=== PATIENT | female | born 1990 | race Caucasian/White ===

== ENCOUNTER 2017-01-23 19:53 | Emergency (ER) | payer BC ==
[~2017-01-23] VITALS: Ht 157.5 cm; Wt 61.7 kg
[~2017-01-23 19:53] MED LIST: ACET-789 PO; ACHD5005 PO; CEPH-38 PO; DCS100C PO; FERR-65 PO; FRS325T PO; IBP600T1 PO; NFR150C PO; OMEP20CA6 PO; PREN1TAB39 PO
--- NOTE | 2017-01-23 20:09 | ED GI ---
General Chief Complaint: Abdominal/GI Problems Stated Complaint: VOMITING Nursing Triage Note: PT STATES HAS BEEN VOMITING AND HAS LOW BACK PAIN PT IS UNSURE OF DATES Sepsis Screen: No Definite Risk Source of Information: Patient Exam Limitations: No Limitations History of Present Illness Time Seen By Provider: 20:07 Initial Comments ER with nausea and vomiting since this afternoon. She reports some low back pain which she reports as a contraction type pain. She is and has had a test at home that was positive and states that she had some interaction with Dr. Alanis's office 2 weeks ago but did not have any ultrasound performed. She is unsure of her last menstrual period or how far along she may be. She denies any abdominal pain. . She denies any vaginal discharge or bleeding. Timing/Duration: 4-6 Hours Severity/Quality: Moderate Location: Generalized Abdomen Radiation: No Radiation Activities at Onset: None Associated Symptoms: Nausea/Vomiting Allergies and Home Medications Allergies Coded Allergies: No Known Drug Allergies (Unverified , 05/29/12) Home Medications Vits W-Ca,Fe,Fa(<1MG) 1 Each Tablet, 1 EACH PO, (Reported) Review of Systems Constitutional: see HPI EENTM: No Symptoms Reported Respiratory: No Symptoms Reported Cardiovascular: No Symptoms Reported Gastrointestinal: See HPI, Abdominal Pain Genitourinary: No Symptoms Reported Musculoskeletal: no symptoms reported Skin: no symptoms reported Psychiatric/Neurological: No Symptoms Reported Endocrine: No Symptoms Reported Hematologic/Lymphatic: No Symptoms Reported Past Yymhwoe-Wdokpg-Skecxi Hx Patient Social History Alcohol Use: Denies Use Recreational Drug Use: No Smoking Status: Never a Smoker Recent Foreign Travel: No Contact w/Someone Who Travel: No Recent Infectious Disease Expo: No Recent Hopitalizations: No (in may 2012 for kidney stone) Immunizations Up To Date Tetanus Booster (TDap): More than 5yrs PED Vaccines UTD: Yes Date of Influenza Vaccine: Dec 08, 2011 Surgeries HX Surgeries: Yes (wisdom teeth extraction) Respiratory Hx Respiratory Disorders: Yes (exercise induced) Respiratory Disorders: Asthma Cardiovascular Hx Cardiac Disorders: No Neurological Hx Neurological Disorders: No Reproductive System : Yes Hx Reproductive Disorders: No Sexually Transmitted Disease: No HIV/AIDS: No Female Reproductive Disorders: Denies Genitourinary Hx Genitourinary Disorders: Yes Genitourinary Disorders: Kidney Stones Gastrointestinal Hx Gastrointestinal Disorders: No Musculoskeletal Hx Musculoskeletal Disorders: No Endocrine Hx Endocrine Disorders: No HEENT HX ENT Disorders: No Cancer Hx Cancer: No Psychosocial Hx Psychiatric Problems: No Integumentary HX Skin/Integumentary Disorder: No Blood Transfusions Hx Blood Disorders: Yes Family Medical History Family Medial History: Asthma 19 FATHER G8 BROTHER Severe allergy 19 FATHER G8 BROTHER Thyroid disease 19 MOTHER No Family History of: AIDS Abdominal aortic aneurysm Devyn's disease Alcoholism Alzheimer's disease Aphasia Arthritis Cancer of mouth Cardiovascular disease Cataracts Colon cancer Completed stroke Congenital disease Congenital heart disease Coronary thrombosis Cystic fibrosis Deafness or hearing loss Dementia Diabetes mellitus Drug abuse Dysphasia Fibrocystic disease of breast Gastroenteritis Glaucoma Headache disorder Hypercholesterolemia Hypertension Infertility Kidney disease Myocardial infarction Neoplasm Not obtainable due to adoption Osteoporosis Parkinson's disease Prostate cancer Psychosocial problem Respiratory disorder Seizure disorder Tuberculosis Visual disorder Physical Exam Vital Signs VS - Last 72 Hours, by Label 01/23/17 19:59 Temp 98.7 Pulse 122 Resp 18 B/P (MAP) 135/84 Pulse Ox 100 Capillary Refill : Less Than 3 Seconds General Appearance: WD/WN, mild distress (vomiting) HEENT: PERRL/EOMI Neck: non-tender, full range of motion Respiratory: chest non-tender, lungs clear, normal breath sounds Cardiovascular: no murmur, tachycardia Gastrointestinal: normal bowel sounds, non tender, soft Extremities: normal range of motion, non-tender Neurologic/Psychiatric: alert, normal mood/affect, oriented x 3 Skin: normal color, warm/dry Progress/Results/Core Measures Results/Orders Lab Results Laboratory Tests Test 01/23/17 20:05 01/23/17 20:08 Range/Units White Blood Count 8.9 4.3-11.0 10^3/uL Red Blood Count 4.31 L 4.35-5.85 10^6/uL Hemoglobin 11.5 11.5-16.0 G/DL Hematocrit 34 L 35-52 % Mean Corpuscular Volume 79 L 80-99 FL Mean Corpuscular Hemoglobin 27 25-34 PG Mean Corpuscular Hemoglobin Concent 34 32-36 G/DL Red Cell Distribution Width 14.0 10.0-14.5 % Platelet Count 186 130-400 10^3/uL Mean Platelet Volume 11.8 H 7.4-10.4 FL Neutrophils (%) (Auto) 81 H 42-75 % Lymphocytes (%) (Auto) 14 12-44 % Monocytes (%) (Auto) 4 0-12 % Eosinophils (%) (Auto) 1 0-10 % Basophils (%) (Auto) 0 0-10 % Neutrophils # (Auto) 7.3 1.8-7.8 X 10^3 Lymphocytes # (Auto) 1.3 1.0-4.0 X 10^3 Monocytes # (Auto) 0.4 0.0-1.0 X 10^3 Eosinophils # (Auto) 0.1 0.0-0.3 10^3/uL Basophils # (Auto) 0.0 0.0-0.1 10^3/uL Sodium Level 139 135-145 MMOL/L Potassium Level 3.9 3.6-5.0 MMOL/L Chloride Level 107 98-107 MMOL/L Carbon Dioxide Level 21 21-32 MMOL/L Anion Gap 11 5-14 MMOL/L Blood Urea Nitrogen 8 7-18 MG/DL Creatinine 0.70 0.60-1.30 MG/DL Estimat Glomerular Filtration Rate > 60 BUN/Creatinine Ratio 11 Glucose Level 79 70-105 MG/DL Calcium Level 8.7 8.5-10.1 MG/DL Total Bilirubin 0.5 0.1-1.0 MG/DL Aspartate Amino Transf (AST/SGOT) 18 5-34 U/L Alanine Aminotransferase (ALT/SGPT) 10 0-55 U/L Alkaline Phosphatase 44 40-136 U/L Total Protein 6.8 6.4-8.2 G/DL Albumin 3.9 3.2-4.5 G/DL Human Chorionic Gonadotropin, Quant [id number] H <5 MIU/ML Urine Color YELLOW Urine Clarity CLEAR Urine pH 6 5-9 Urine Specific [place] 1.015 L 1.016-1.022 Urine Protein NEGATIVE NEGATIVE Urine Glucose (UA) NEGATIVE NEGATIVE Urine Ketones NEGATIVE NEGATIVE Urine Nitrite NEGATIVE NEGATIVE Urine Bilirubin NEGATIVE NEGATIVE Urine Urobilinogen NORMAL NORMAL MG/DL Urine Leukocyte Esterase 2+ H NEGATIVE Urine RBC (Auto) NEGATIVE NEGATIVE Urine RBC NONE /HPF Urine WBC 2-5 /HPF Urine Squamous Epithelial Cells 5-10 /HPF Urine Crystals NONE /LPF Urine Bacteria NONE /HPF Urine Casts NONE /LPF Urine Mucus NEGATIVE /LPF Urine Culture Indicated NO My Orders Orders - AIDAN HURD [employer] CLEANER REPAIR PERSON Cbc With Automated Diff (01/23/17 20:05) Hcg,Quantitative (01/23/17 20:05) Ua Culture If Indicated (01/23/17 20:05) Us Ob Single Fetus<14 [id number] (01/23/17 20:05) Comprehensive Metabolic Panel (01/23/17 20:05) Saline Lock/Iv-Start (01/23/17 20:05) Ns Iv 1000 Ml (Sodium Chloride 0.9%) (01/23/17 20:15) Ondansetron Injection (Zofran Injectio (01/23/17 20:15) Medications Given in ED Current Medications Medications Dose Ordered Sig/Mari Route Start Time Stop Time Status Last Admin Dose Admin Ondansetron HCl 8 mg ONCE ONCE IVP 01/23/17 20:15 01/23/17 20:16 DC 01/23/17 20:13 8 MG Vital Signs/I&O Vital Sign - Last 12Hours 01/23/17 19:59 Temp 98.7 Pulse 122 Resp 18 B/P (MAP) 135/84 Pulse Ox 100 Blood Pressure Mean: 101 Departure Impression Impression: Primary Impression: Nausea and vomiting during Disposition: 01 HOME, SELF-CARE Condition: Stable Departure-Patient Inst. Decision time for Depature: 21:12 Referrals: ALE MANSFIELD DO (PCP/Family) Primary Care Physician Patient Instructions: Nausea and Vomiting of (DC) Add. Discharge Instructions: 1. Follow-up with Dr. Alanis 2. Return to the emergency room for any concerns such as fevers, abdominal pain , vaginal bleeding, intolerable nausea and vomiting 3. All discharge instructions reviewed with patient and/or family. Voiced understanding. Copy Copies To 1: BIRD ALANIS DO Copies To 2: ALE MANSFIELD PETER J APRN Jan 23, 2017 20:09
[2017-01-23 20:14] LABS: BASOPHILS % (AUTO) 0 % (0-10); EOSINOPHILS # (AUTO) 0.1 10^3/uL (0.0-0.3); EOSINOPHILS % (AUTO) 1 % (0-10); LYMPHOCYTES # (AUTO) 1.3 X 10^3 (1.0-4.0); LYMPHOCYTES % (AUTO) 14 % (12-44); MEAN CORPUSCULAR HEMOGLOBIN 27 PG (25-34); MEAN CORPUSCULAR HGB CONC 34 G/DL (32-36); MEAN CORPUSCULAR VOLUME 79 FL (80-99); MEAN PLATELET VOLUME 11.8 FL (7.4-10.4); MONOCYTES # (AUTO) 0.4 X 10^3 (0.0-1.0); MONOCYTES % (AUTO) 4 % (0-12); NEUTROPHILS # (AUTO) 7.3 X 10^3 (1.8-7.8); NEUTROPHILS % (AUTO) 81 % (42-75); PLATELET COUNT 186 10^3/uL (130-400); RED BLOOD COUNT 4.31 10^6/uL (4.35-5.85); WHITE BLOOD COUNT 8.9 10^3/uL (4.3-11.0)
[2017-01-23 20:15] LABS: BILIRUBIN,URINE NEGATIVE (NEGATIVE); KETONES,URINE NEGATIVE (NEGATIVE); LEUKOCYTE ESTERASE ,URINE 2+ (NEGATIVE); NITRITE,URINE NEGATIVE (NEGATIVE); PH,URINE 6 (5-9); PROTEIN,URINE NEGATIVE (NEGATIVE); UROBILINOGEN,URINE NORMAL (NORMAL)
[2017-01-23] MEDS ORDERED: ONDANSETRON 4 MG/2 ML (SDV) Z0FRAN IVP ONE (20:15)
[2017-01-23] MEDS ORDERED: NS IV 1000 ML 1,000 ML IV SCH (20:15)
[2017-01-23 20:33] LABS: ALANINE AMINOTRANSFERASE 10 U/L (0-55); ALBUMIN 3.9 G/DL (3.2-4.5); ANION GAP 11 MMOL/L (5-14); ASPARTATE AMINO TRANSFERASE 18 U/L (5-34); BILIRUBIN,TOTAL 0.5 MG/DL (0.1-1.0); BLOOD UREA NITROGEN 8 MG/DL (7-18); BUN/CREATININE RATIO 11; CALCIUM 8.7 MG/DL (8.5-10.1); CARBON DIOXIDE 21 MMOL/L (21-32); CHLORIDE 107 MMOL/L (98-107); GFR ESTIMATED > 60; GLUCOSE 79 MG/DL (70-105); POTASSIUM 3.9 MMOL/L (3.6-5.0); SODIUM 139 MMOL/L (135-145); TOTAL PROTEIN 6.8 G/DL (6.4-8.2)
[2017-01-23 21:22] VITALS: BP 128/80
--- NOTE | 2017-01-23 21:36 | Diagnostic Imaging Report ---
INDICATION: Uncertain gestational age. EXAM: OB sonogram. FINDINGS: A single living intrauterine in cephalic presentation. Amniotic fluid volume is normal. The placenta is anterior and appears to be a complete previa. heart rate was 147 beats per minute. IMPRESSION: Limited OB sonogram shows anterior placenta with a complete placenta previa. measurements correspond to a gestational age of 18 weeks and 5 days. Dictated by: Dictated on workstation # [id number]
--- OUTSIDE RECORDS SUMMARY | 2017-02-25 15:23 | XMS REPORT ---
Author Author RUDY CHAPIN [facility] [employer] Address Unknown Phone Unavailable Care Team Providers Care Low Vision Therapist Name Role Phone RUDY CHAPIN CP Unavailable Allergies No Known Allergies Problems Problem Type Condition Code Onset Dates Condition Status Problem Anxiety disorder, unspecified F41.9 Active Assessment Major depressive disorder, recurrent, moderate F33.1 Active Problem Major depressive disorder, recurrent, moderate F33.1 Active Assessment Anxiety disorder, unspecified F41.9 Active Medications No Known Medications Procedures Procedure Coding System Code Date Psych diagnostic evaluation, established patient CPT-4 77386 Sep 06, 2015 Results No Known Results Summary Purpose eClinicalWorks Submission
--- OUTSIDE RECORDS SUMMARY | 2017-02-25 15:23 | XMS REPORT ---
Author RADHA Pressley [facility] [employer] Address Unknown Phone Unavailable Care Team Providers Care School Athletic Director Name Role Phone RADHA ALMODOVAR CP Unavailable Allergies No Known Allergies Problems Problem Type Condition Code Onset Dates Condition Status Problem Anxiety disorder, unspecified F41.9 Active Assessment Screening for tuberculosis Z11.1 Active Problem Major depressive disorder, recurrent, moderate F33.1 Active Medications No Known Medications Procedures Procedure Coding System Code Date TB INTRADERMAL TEST CPT-4 55838 Oct 27, 2015 Results No Known Results Summary Purpose eClinicalWorks Submission
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
--- OUTSIDE RECORDS SUMMARY | 2017-02-25 15:24 | XMS REPORT ---
Author Author RUDY CHAPIN Organization [employer] Address Unknown Phone Unavailable Care Team Providers Care Atlassian Administrator Name Role Phone RUDY CHAPIN CP Unavailable Allergies No Known Allergies Problems Problem Type Condition Code Onset Dates Condition Status Problem Anxiety disorder, unspecified F41.9 Active Assessment Major depressive disorder, recurrent, moderate F33.1 Active Problem Major depressive disorder, recurrent, moderate F33.1 Active Assessment Anxiety disorder, unspecified F41.9 Active Medications No Known Medications Procedures Procedure Coding System Code Date Psychotherapy, patient &/family, 45 minutes, established patient CPT-4 76871 Oct 08, 2015 Results No Known Results Summary Purpose eClinicalWorks Submission
== END 2017-01-23 21:20 | disposition home or self-care (01) ==
LOC: EDUNIT# 19:53 → ER 19:54
DX: O21.0 Mild hyperemesis gravidarum (principal); Z3A.18 18 weeks gestation of pregnancy
CPT/HCPCS: 36415; 76805; 80053; 81000; 84702; 85025; 96361; 96374

== ENCOUNTER → 2017-02-16 | Outpatient (CLI) | payer BC ==
--- NOTE | 2017-02-16 17:20 | Diagnostic Imaging Report ---
INDICATION: survey. FINDINGS: Single live intrauterine fetus. Fetus is vertex and active. Heart rate of 147 beats per minute. Amniotic fluid index is normal. Placenta is anterior and does extend into the lower uterine segment raising concern of at least partial previa. The anatomical survey appears normal. Cervical length is 6.5 cm. Biometric measurements are BPD 5.10 cm, head circumference 18.85 cm, abdominal circumference 17.0 cm, femur length 3.71 cm with estimated weight of 453 g. IMPRESSION: 1. There is a 22 weeks 1 day live intrauterine based on previous ultrasound of 01/23/2017. There has been normal growth in the interim. Today's measurements are average for 21 weeks 5 days gestation. age by LMP is 22 weeks 1 day. Estimated date of delivery by ultrasound is 06/24/2017 with estimated date of delivery by LMP of 06/21/2017. Dictated by: Dictated on workstation # [id number]
== END ==
LOC: RAD 13:26
PROVIDERS: ATTEND Obstetrics & Gynecology
DX: O26.842 Uterine size-date discrepancy, second trimester (principal); O44.42 Low lying placenta NOS or without hemorrhage, second trimester; R76.8 Other specified abnormal immunological findings in serum; Z3A.22 22 weeks gestation of pregnancy
CPT/HCPCS: 76805; 76817

== ENCOUNTER 2017-04-06 15:36 | Outpatient (CLI) | payer BC, MEDICAID ==
[~2017-04-06] VITALS: Ht 157.5 cm; Wt 66.3 kg
[2017-04-06 15:55] VITALS: BP 119/74
[2017-04-06] MEDS ORDERED: FERR325C PO (16:27)
[2017-04-06] MEDS ORDERED: ONDANSETRON 8 MG (ZOFRAN) ORAL DISSOLVE TAB PO ONE (16:30)
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
== END 2017-04-06 17:17 | disposition home or self-care (01) ==
LOC: LDRP 15:36 → WSo 15:36
PROVIDERS: ATTEND Obstetrics & Gynecology
DX: O9A.313 Physical abuse complicating pregnancy, third trimester (principal); Z3A.29 29 weeks gestation of pregnancy
CPT/HCPCS: 99213

== ENCOUNTER 2017-05-08 17:12 | Outpatient (CLI) | payer BC, MEDICAID ==
[~2017-05-08] VITALS: Ht 157.5 cm; Wt 66.3 kg
[~2017-05-08 17:12] MED LIST changes: +FERR325C PO
[2017-05-08 17:55] VITALS: BP 112/60
[2017-05-08 18:08] VITALS: BP 118/70
--- NOTE | 2017-05-09 11:33 | Physician Query-Final Dx ---
JIGNA LEO 05/09/17 1133: Clinic Account Progress/Dx Physician Query: Please give diagnosis Date of Service May 08, 2017 at 17:12 BIRD ALANIS DO 06/07/17 0645: Clinic Account Progress/Dx DIAGNOSIS: Diagnosis decreased movement, third trimester JIGNA LEO May 09, 2017 11:33 BIRD ALANIS DO Jun 07, 2017 06:45
== END 2017-05-08 18:40 | disposition home or self-care (01) ==
LOC: LDRP 17:12 → WSo 17:12
PROVIDERS: ATTEND Obstetrics & Gynecology
DX: O36.8130 Decreased fetal movements, third trimester, not applicable or unspecified (principal); Z3A.33 33 weeks gestation of pregnancy
CPT/HCPCS: 99213

== ENCOUNTER → 2017-05-22 | Outpatient (CLI) | payer BC, MEDICAID ==
--- NOTE | 2017-05-22 16:45 | Diagnostic Imaging Report ---
EXAMINATION: Biophysical profile. OB ultrasound. INDICATION: Decreased movement. TECHNIQUE: Multiple real-time grayscale images were obtained over the gravid uterus. COMPARISON: 02/16/2017. FINDINGS: heart rate is 132 beats per minute. The placenta is anterior. No placenta previa. Amniotic fluid index is 8.9 cm. Biophysical profile criteria is assessed with no breathing seen. Total biophysical profile score is 6/8. The growth parameters are: Biparietal diameter: 32 week and one day, at -2.7 standard deviations Head circumference: 34 week and one day at -2 standard deviation Abdominal circumference: 34 week and 2 days at -0.9 standard deviation Femur length: 33 week and 2 day at -1.9 standard deviation These average at: 33 weeks and 4 days this compares to gestational age of 35 weeks and 5 days based on DAVID of 06/21/2017. Estimated Weight: 2.3 kg . IMPRESSION: 1. Biophysical profile score is 6/8. 2. The growth measurements are listed above. The head measurements are below 2 standard deviations from the mean at this gestational age. Report given to nurse (January) \T\ faxed to [phone] at 4:38 p.m. 05/22/2017/cb Dictated by: Dictated on workstation # [id number]
== END ==
LOC: RAD 13:56
PROVIDERS: ATTEND Obstetrics & Gynecology
DX: O26.843 Uterine size-date discrepancy, third trimester (principal); Z3A.33 33 weeks gestation of pregnancy
CPT/HCPCS: 76805; 76819

== ENCOUNTER → 2017-05-31 | Outpatient (CLI) | payer BC, MEDICAID ==
--- NOTE | 2017-05-31 16:57 | Diagnostic Imaging Report ---
OB ultrasound with biophysical profile INDICATION: Decreased movement TECHNIQUE: Multiple real-time grayscale images were obtained over the gravid uterus. COMPARISON: 06/10/17 FINDINGS: The heart rate is 130 beats per minute. The placenta is anterior. No placenta previa. The LUISITO is 9.4 CM. Biophysical profile total score is 8 out of 8. Biometrical measurements are as follows: Biparietal 8.18 cm, age 33 weeks 0 days, at the 2.7 standard deviation below the mean. Head circumference 31.06 cm, age 34 weeks 6 days, 2.3 standard deviation below the mean. Abdominal circumference 33.82 cm, age 37 weeks 6 days at 0.9 standard deviation above the mean. Femur length 6.59 cm, age 34 weeks 0 days, at 2.1 standard deviation below the mean. Sonographic estimate age: 35 weeks 0 days. Sonographic estimated date of delivery: 07/05/2017. Estimated Weight: 2802 gm (+/- 409 gm). LMP percentile: 28%. heart rate: 130 beats per minute. number: 1 of 1. IMPRESSION: Biophysical profile score is 8 out of 8. Dictated by: Dictated on workstation # [id number]
== END ==
LOC: RAD 10:14
PROVIDERS: ATTEND Nurse Practitioner
DX: O36.8190 Decreased fetal movements, unspecified trimester, not applicable or unspecified (principal); Z3A.00 Weeks of gestation of pregnancy not specified
CPT/HCPCS: 76805; 76819

== ENCOUNTER 2017-06-26 00:41 | Inpatient (IN) | payer BC, MEDICAID ==
[~2017-06-26] VITALS: Ht 167.6 cm; Wt 74.5 kg
[2017-06-26] VITALS (29 sets, daily range): BP systolic 105–155; BP diastolic 55–84
[2017-06-26] MEDS ORDERED: D5 LR IV SOLUTION 1,000 ML IV ONE (01:08)
[2017-06-26] MEDS ORDERED: D5 LR IV SOLUTION 1,000 ML IV SCH (01:19)
[2017-06-26] MEDS ORDERED: MINERAL OIL CONCENTRATE 99.9% 15 ML UDC TOP PRN (01:30)
[2017-06-26 01:48] LABS: BASOPHILS % (AUTO) 0 % (0-10); EOSINOPHILS # (AUTO) 0.2 10^3/uL (0.0-0.3); EOSINOPHILS % (AUTO) 2 % (0-10); LYMPHOCYTES # (AUTO) 2.7 X 10^3 (1.0-4.0); LYMPHOCYTES % (AUTO) 32 % (12-44); MEAN CORPUSCULAR HEMOGLOBIN 25 PG (25-34); MEAN CORPUSCULAR HGB CONC 32 G/DL (32-36); MEAN CORPUSCULAR VOLUME 78 FL (80-99); MONOCYTES # (AUTO) 0.8 X 10^3 (0.0-1.0); MONOCYTES % (AUTO) 9 % (0-12); NEUTROPHILS # (AUTO) 4.7 X 10^3 (1.8-7.8); NEUTROPHILS % (AUTO) 56 % (42-75); PLATELET COUNT 134 10^3/uL (130-400); RED BLOOD COUNT 4.11 10^6/uL (4.35-5.85); WHITE BLOOD COUNT 8.3 10^3/uL (4.3-11.0)
[2017-06-26 02:04] LABS: BILIRUBIN,URINE NEGATIVE (NEGATIVE); KETONES,URINE NEGATIVE (NEGATIVE); LEUKOCYTE ESTERASE ,URINE NEGATIVE (NEGATIVE); NITRITE,URINE NEGATIVE (NEGATIVE); PH,URINE 7 (5-9); PROTEIN,URINE NEGATIVE (NEGATIVE); UROBILINOGEN,URINE NORMAL (NORMAL)
[2017-06-26] MEDS ORDERED: SUFENTA 0.6MCG/ML BUPIVA 0.125 100 ML ONE (02:16)
[2017-06-26] MEDS ORDERED: LACTATED RINGERS 1,000 ML IV ONE (02:16)
[2017-06-26] MEDS ORDERED: BUPIVACAINE 0.25% 30 ML (SENSORCAINE) VIAL ONE (02:49)
[2017-06-26] MEDS ORDERED: fentaNYL INJECTION 100 MCG/2 ML AMP ONE (02:49)
[2017-06-26] MEDS ORDERED: LIDOCAINE PF 2% 5 ML (XYLOCAINE) VIAL ONE (02:49)
[2017-06-26] MEDS ORDERED: BUPIVACAINE 0.5% 30 ML (SENSORCAINE) VIAL ONE (02:49)
[2017-06-26] MEDS ORDERED: LACTATED RINGERS 1,000 ML IV SCH (03:18)
[2017-06-26] MEDS ORDERED: ONDANSETRON 4 MG/2 ML (SDV) Z0FRAN IV PRN (03:30)
[2017-06-26] MEDS ORDERED: EPIDURAL (SUFENTA 0.6MCG/ML BUPIVA 0.125%) 100 ML BAG EPI PRN (03:30)
[2017-06-26] MEDS ORDERED: NALOXONE 0.4 MG/ML 1 ML (NARCAN) VIAL IV PRN (03:30)
[2017-06-26] MEDS ORDERED: diphenhydrAMINE 50 MG/ML INJ (BENADRYL) IV PRN (03:30)
[2017-06-26] MEDS ORDERED: LIDOCAINE/EPI 2% 1:200,00 (XYLOCAINE) 10 ML VIAL ONE (04:53)
[2017-06-26] MEDS ORDERED: OXYTOCIN/NORMAL SALINE 500 ML IV ONE (04:56)
[2017-06-26] MEDS: OXYTOCIN/NORMAL SALINE 500 ML IV SCH ×2 (05:18→05:51)
[2017-06-26] MEDS ORDERED: APAP 300 MG/CODEINE 30 MG (TYLENOL #3) TAB PO PRN (05:30)
[2017-06-26] MEDS ORDERED: TETANUS,DIPTH,PERTUSS P/F (BOOSTRIX) 0.5 ML VIAL IM ONE (05:30)
[2017-06-26] MEDS ORDERED: BENZOCAINE/MENTHOL (DERMOPLAST) 56 ML CAN TP PRN (05:30)
[2017-06-26] MEDS ORDERED: DIBUCAINE (NUPERCAINAL) 1% OINT 30 GM TOP PRN (05:30)
[2017-06-26] MEDS ORDERED: WITCH HAZEL(TUCKS) 40 EA JAR TOP PRN (05:30)
[2017-06-26] MEDS ORDERED: MEASLES,MUMPS,RUBELLA 1 EA INJ SQ ONE (05:30)
--- NOTE | 2017-06-26 05:34 | OB Labor & Delivery Record ---
L&D History Date of Service Date of Service: Jun 26, 2017 History Expected Date of Delivery: Jun 22, 2017 Gestational Age in Weeks: 40 Complications Events: Routine care Operative Indications (Cesarea: N/A-Vaginal Delivery Intrapartal Events: None L&D Stage1 Stage One Onset of Labor - Date: Jun 26, 2017 Monitors and Tracing Monitor Mode: External Heart Rate: 130 Monitor Decelerations: None Station: -1 Short Term Variability: Present Presentation: Vertex Vital Signs VS - Last 72 Hours, by Label 06/26/17 06/26/17 06/26/17 06/26/17 01:00 02:05 02:35 02:50 Temp 97.7 Pulse 88 71 80 Resp 18 B/P (MAP) 129/84 Pulse Ox 99 98 O2 Delivery Room Air Room Air 06/26/17 06/26/17 06/26/17 06/26/17 03:00 03:05 03:10 03:15 Pulse 81 69 63 67 B/P (MAP) 155/71 138/74 132/76 136/65 Pulse Ox 98 99 99 99 O2 Delivery Room Air Room Air Room Air Room Air 06/26/17 06/26/17 06/26/17 06/26/17 03:20 03:25 03:30 03:35 Pulse 71 69 68 60 B/P (MAP) 140/71 130/73 128/75 125/73 Pulse Ox 100 100 100 100 O2 Delivery Room Air Room Air Room Air Room Air 06/26/17 03:35 Temp 97.1 Rupture of Membranes Spontaneous Ruture of Membrane: Yes Amniotic Membrane Rupture Time: 0139 Amniotic Fluid Membrane Tests: Nitrazine Positive Vaginal Bleeding Description: Normal Show Induction/Anesthesia Epidural Cath Placement - Time: 04:00 L&D Stage2 Stage Two Stage II Date: Jun 26, 2017 Monitors and Tracing Monitor Mode: External Heart Rate: 130 Monitor Accelerations: Uniform Monitor Decelerations: Variable Inserter Promotional Item Variability: Average (6-10) Short Term Variability: Present Position: Right Occiput Anterior Presentation: Vertex Cord Descript/Complications Cord Vessel Description: 3 Vessels Delivery Type Delivery Method: Spontaneous Vaginal Anterior Shoulder: Right Episiotomy/Perineal Laceration Laceraction(s)/Extensions: No Condition of Delivery 1 minute Comment: 9 5 minute Comment: 10 Condition of Infant Condition of Infant: Living Exam: No Observed Abnormalities live male weight 7lbs 5 oz Resuscitation Resuscitation: N/A - Spontaneous Resp L&D Stage3 Stage Three Stage III Date: Jun 26, 2017 Pictocin Pitocin Administration Comment: 30 mu wide open Placenta Delivery Placenta Delivery: Spontaneous Delivery Summary Summary blood loss >1000ml: No Vaginal blood loss >500ml: No Condition of Delivery Examined: Cervix Examined, Uterus Explored Post Hemorrhage: No Condition of Mother stable Condition of (s) stable [place] ENAMORADO DO Jun 26, 2017 05:34
[2017-06-26] MEDS: IBUPROFEN 600 MG (MOTRIN) TAB PO SCH ×3 (05:51→18:06)
[2017-06-26] MEDS ORDERED: CATHETER FLUSH 10 ML SYR IV SCH ×2 (06:00)
--- NOTE | 2017-06-26 08:43 | History & Physical-OB ---
OB - Chief Complaint & HPI Date/Time Date of Admission: Date of Admission: Jun 26, 2017 at 1:05 am Time Seen by Provider: 04:00 Chief Complaint/History OB-Reason for Admission/Chief: Onset of Labor Hx : 3 Hx Para: 2 Expected Date of Delivery: Jun 22, 2017 Gestational Age in Weeks: 40 Gestational Age in Days: 4 Admission Nurse Assessment Rev: Yes History of Labs O pos Antibody +, Anti K RI RPR NR HBsAg NR HIV NR GC neg GBS neg Allergies and Home Medications Allergies Coded Allergies: No Known Drug Allergies (Unverified , 05/29/12) Home Medications Ferrous Sulfate 325 Mg Capsule.er, 325 MG PO DAILY, (Reported) Vits W-Ca,Fe,Fa(<1MG) 1 Each Tablet, 1 EACH PO, (Reported) OB - History Hx of Present Care: Yes Ultrasounds: Normal mid trimester US Obstetrical Complications: None Medical Complications: None Obstetrical History Hx Termination: No Hx Multiple Gestation: No Hx Stillbirth: No Hx Complication: No Hx Induced Hypertens: No Hx Maternal Gestational Diabet: No Delivery History Hx Dystocia: No Hx Large For Gestational Age I: No Hx Small for Gestational Age I: No Hx Section: No Hx Vaginal Delivery Post C-Sec: No Hx Blood Disorders: Yes Patient Past Medical History GERD, Hx of Nephrolithiasis Social History/Family History HIV/AIDS: No Recent Infectious Disease Expo: No Sexually Transmitted Disease: No Alcohol Use: Denies Use Recreational Drug Use: No Immunizations Hepatitis A: No Hepatitis B: No Tetanus Booster (TDap): More than 5yrs Date of Influenza Vaccine: Dec 08, 2011 OB - Admission Exam Physical Exam Date Seen by Provider: Jun 26, 2017 Time Seen by Provider: 04:00 Vitals: Vital Signs 06/26/17 06/26/17 06/26/17 06/26/17 06/26/17 01:00 05:00 05:15 06:17 07:17 Temp 97.9 Pulse 55 Resp 18 B/P (MAP) 109/58 Pulse Ox 100 O2 Delivery Room Air HEENT: NCAT Lungs: Clear Abdomen: Gravid Extremities: Normal Reflexes: Normal Cervical Dilatation: 5cm Effacement: 75% Station: -1 Membranes: Intact Heart Rate: 130's Accelerations: Accelerations Present Decelerations: No Decelerations Short Term Variability: Present Fpc Variability: Average (6-25) Intensity: Firm Labs Laboratory Tests Test 06/26/17 01:30 Range/Units White Blood Count 8.3 4.3-11.0 10^3/uL Red Blood Count 4.11 L 4.35-5.85 10^6/uL Hemoglobin 10.3 L 11.5-16.0 G/DL Hematocrit 32 L 35-52 % Mean Corpuscular Volume 78 L 80-99 FL Mean Corpuscular Hemoglobin 25 25-34 PG Mean Corpuscular Hemoglobin Concent 32 32-36 G/DL Red Cell Distribution Width 15.0 H 10.0-14.5 % Platelet Count 134 130-400 10^3/uL Mean Platelet Volume 7.4-10.4 FL Neutrophils (%) (Auto) 56 42-75 % Lymphocytes (%) (Auto) 32 12-44 % Monocytes (%) (Auto) 9 0-12 % Eosinophils (%) (Auto) 2 0-10 % Basophils (%) (Auto) 0 0-10 % Neutrophils # (Auto) 4.7 1.8-7.8 X 10^3 Lymphocytes # (Auto) 2.7 1.0-4.0 X 10^3 Monocytes # (Auto) 0.8 0.0-1.0 X 10^3 Eosinophils # (Auto) 0.2 0.0-0.3 10^3/uL Basophils # (Auto) 0.0 0.0-0.1 10^3/uL Urine Color YELLOW Urine Clarity CLEAR Urine pH 7 5-9 Urine Specific [place] 1.015 L 1.016-1.022 Urine Protein NEGATIVE NEGATIVE Urine Glucose (UA) NEGATIVE NEGATIVE Urine Ketones NEGATIVE NEGATIVE Urine Nitrite NEGATIVE NEGATIVE Urine Bilirubin NEGATIVE NEGATIVE Urine Urobilinogen NORMAL NORMAL MG/DL Urine Leukocyte Esterase NEGATIVE NEGATIVE Urine RBC (Auto) NEGATIVE NEGATIVE Urine RBC NONE /HPF Urine WBC NONE /HPF Urine Squamous Epithelial Cells 2-5 /HPF Urine Crystals NONE /LPF Urine Amorphous Sediment FEW VIVIEN PHOSPHATE H /LPF Urine Bacteria TRACE /HPF Urine Casts NONE /LPF Urine Mucus SMALL H /LPF Urine Culture Indicated NO OB - Assessment/Plan/Diagnosis Assessment Assessment: active labor Plan Plan: Expectant Management Discharge Diagnosis Diagnosis: 27 yo @ 40.4 Active labor GBS neg AZ ENAMORADO DO Jun 26, 2017 8:43 am
[2017-06-26] MEDS ORDERED: FERROUS SULF 325 MG (IRON) TAB PO SCH (09:00)
[2017-06-26] MEDS: PRENATAL VITAMIN 1 EA TAB PO SCH (11:05)
--- NOTE | 2017-06-26 14:07 | Anesthesia-Regional Post-Op ---
Regional Patient Condition Mental Status: Alert, Oriented x3 Circulation: Same as Pre-Op Headache: Absent Sensation: Full Recovery Motor Block: Absent Post Op Complications Complications None Follow Up Care/Instructions Patient Instructions None needed. Anesthesia/Patient Condition Patient is doing well, no complaints, stable vital signs, no apparent adverse anesthesia problems. No complications reported per nursing. RIMMA DAVID CRNA Jun 26, 2017 14:07
[2017-06-26] MEDS: DOCUSATE SODIUM 100 MG (COLACE) CAP PO SCH (21:22)
[2017-06-27 00:15] VITALS: BP 100/59
[2017-06-27] MEDS: IBUPROFEN 600 MG (MOTRIN) TAB PO SCH ×3 (00:15→11:44)
[2017-06-27 04:15] VITALS: BP 104/57
[2017-06-27 06:43] LABS: BASOPHILS % (AUTO) 0 % (0-10); EOSINOPHILS # (AUTO) 0.2 10^3/uL (0.0-0.3); EOSINOPHILS % (AUTO) 2 % (0-10); LYMPHOCYTES # (AUTO) 3.4 X 10^3 (1.0-4.0); LYMPHOCYTES % (AUTO) 38 % (12-44); MEAN CORPUSCULAR HEMOGLOBIN 25 PG (25-34); MEAN CORPUSCULAR HGB CONC 31 G/DL (32-36); MEAN CORPUSCULAR VOLUME 79 FL (80-99); MONOCYTES # (AUTO) 0.6 X 10^3 (0.0-1.0); MONOCYTES % (AUTO) 7 % (0-12); NEUTROPHILS # (AUTO) 4.7 X 10^3 (1.8-7.8); NEUTROPHILS % (AUTO) 53 % (42-75); PLATELET COUNT 124 10^3/uL (130-400); RED BLOOD COUNT 3.82 10^6/uL (4.35-5.85); RED CELL DISTRIBUTION WIDTH 15.2 % (10.0-14.5); WHITE BLOOD COUNT 8.8 10^3/uL (4.3-11.0)
[2017-06-27 07:40] VITALS: BP 115/66
--- NOTE | 2017-06-27 09:21 | Postpartum Progress Note ---
Note Note Day # 1 s/p Subjective: Patient is without complaints. Ambulating, voiding. Tolerating a regular diet without nausea or vomiting. Normal lochia. Pain is well controlled with oral pain medications. breast feeding] Objective: Laboratory Tests Test 06/27/17 06:35 Range/Units White Blood Count 8.8 4.3-11.0 10^3/uL Red Blood Count 3.82 L 4.35-5.85 10^6/uL Hemoglobin 9.4 L 11.5-16.0 G/DL Hematocrit 30 L 35-52 % Mean Corpuscular Volume 79 L 80-99 FL Mean Corpuscular Hemoglobin 25 25-34 PG Mean Corpuscular Hemoglobin Concent 31 L 32-36 G/DL Red Cell Distribution Width 15.2 H 10.0-14.5 % Platelet Count 124 L 130-400 10^3/uL Mean Platelet Volume 7.4-10.4 FL Neutrophils (%) (Auto) 53 42-75 % Lymphocytes (%) (Auto) 38 12-44 % Monocytes (%) (Auto) 7 0-12 % Eosinophils (%) (Auto) 2 0-10 % Basophils (%) (Auto) 0 0-10 % Neutrophils # (Auto) 4.7 1.8-7.8 X 10^3 Lymphocytes # (Auto) 3.4 1.0-4.0 X 10^3 Monocytes # (Auto) 0.6 0.0-1.0 X 10^3 Eosinophils # (Auto) 0.2 0.0-0.3 10^3/uL Basophils # (Auto) 0.0 0.0-0.1 10^3/uL Vital Sign - Last 12Hours 06/27/17 06/27/17 00:15 04:15 Temp 98.1 97.8 Pulse 57 50 Resp 20 20 B/P (MAP) 100/59 104/57 Pulse Ox 97 97 O2 Delivery Room Air Room Air Physical Exam: General - Alert and oriented, no apparent distress Abdomen - Soft, appropriately tender to palpation, non-distended, fundus firm at umbilicus Extremities - no edema, negative Polly's bilaterally Assessment: 1. post- day # 1, status post vaginal delivery. Recovering well, hemodynamically stable 2. Antepartum and Acute blood loss anemia Plan: Routine care. Encourage breast feeding. Encourage ambulation. Ferrous sulfate supplementation. Plan for discharge today Vitals - Labs Vital Signs - I&O Vital Signs Date Time Temp Pulse Resp B/P (MAP) Pulse Ox O2 Delivery O2 Flow Rate FiO2 06/27/17 04:15 97.8 50 20 104/57 97 Room Air 06/27/17 00:15 98.1 57 20 100/59 97 Room Air 06/26/17 20:05 98.7 57 20 109/72 Room Air 06/26/17 16:00 97.9 69 16 105/58 98 Room Air 06/26/17 11:50 98.2 54 18 110/71 97 Room Air Labs Laboratory Tests 06/27/17 06:35: White Blood Count 8.8, Red Blood Count 3.82L, Hemoglobin 9.4L, Hematocrit 30L, Mean Corpuscular Volume 79L, Mean Corpuscular Hemoglobin 25, Mean Corpuscular Hemoglobin Concent 31L, Red Cell Distribution Width 15.2H, Platelet Count 124L, Mean Platelet Volume , Neutrophils (%) (Auto) 53, Lymphocytes (%) (Auto) 38, Monocytes (%) (Auto) 7, Eosinophils (%) (Auto) 2, Basophils (%) (Auto) 0, Neutrophils # (Auto) 4.7, Lymphocytes # (Auto) 3.4, Monocytes # (Auto) 0.6, Eosinophils # (Auto) 0.2, Basophils # (Auto) 0.0 BIRD ALANIS DO Jun 27, 2017 09:21
[2017-06-27] MEDS ORDERED: TETANUS,DIPTH,PERTUSS P/F (BOOSTRIX) 0.5 ML VIAL IM ONE (09:28)
[2017-06-27] MEDS: PRENATAL VITAMIN 1 EA TAB PO SCH (09:37)
[2017-06-27] MEDS: DOCUSATE SODIUM 100 MG (COLACE) CAP PO SCH (09:37)
[2017-06-27 12:25] VITALS: BP 118/77
[2017-06-27] MEDS ORDERED: IBUP-1773 PO (13:31)
--- NOTE | 2017-06-27 13:32 | Discharge Inst-Women's Service ---
Discharge Inst-Women's Serv Depart Medication/Instructions New, Converted or Re-Newed RX: Call to Patients Pharmacy Final Diagnosis vaginal delivery iron def anemia precipitous delivery Consults/Follow Up Additional Follow Up: Yes (6 weeks) Activity Activity: Activity as Tolerated Driving Instructions: You May Drive NO SMOKING: NO SMOKING Nothing Inside Vagina: No Douching, No [place], No Tampons Diet Discharge Diet: No Restrictions Symptoms to Report to : Bleeding Excessive, Pain Increased, Fever Over 101 Degrees F, Vaginal Bleeding Increase, Cramps in Feet or Legs, Vaginal Discharge Foul For Any Problems or Questions: Contact Your Physician BIRD ALANIS DO Jun 27, 2017 13:32
== END 2017-06-27 14:47 | disposition home or self-care (01) | DRG 775 ==
LOC: LDRP 00:41 → WSo 00:41 → LDRP 01:05 → WSo 01:05
PROVIDERS: ADMIT Obstetrics & Gynecology; ATTEND Obstetrics & Gynecology
PROC: 10E0XZZ Delivery of Products of Conception, External Approach (ICD-10-PCS; principal; 2017-06-26)
DX: O90.81 Anemia of the puerperium (principal); D62 Acute posthemorrhagic anemia; Z3A.40 40 weeks gestation of pregnancy; Z37.0 Single live birth; Z23 Encounter for immunization
CPT/HCPCS: 36415; 81000; 85025; 86850; 86900; 86901; 90715; 99212

== ENCOUNTER → 2018-09-25 | Outpatient (CLI) | payer BC, MEDICAID ==
[~2018-09-25] MED LIST changes: +IBUP-1773 PO
--- NOTE | 2018-09-25 19:53 | Diagnostic Imaging Report ---
INDICATION: Palpable lump right breast. Correlation is made with diagnostic mammogram earlier same day. FINDINGS: Sonographic interrogation of the area of lump in the right breast was performed, corresponding to approximately 11 o'clock location. No sonographic abnormality is seen. No solid or cystic mass is seen. IMPRESSION: No sonographic abnormality is detected. Continued close clinical and self breast exam is recommended to confirm stability of the palpable abnormality. ACR BI-RADS Category 1: Negative. Dictated by: Dictated on workstation # [id number]
--- NOTE | 2018-09-25 21:37 | Diagnostic Imaging Report ---
INDICATION: Palpable lump in the right breast. COMPARISON: No prior mammograms are available for comparison. EXAMINATION: 2D and 3D bilateral diagnostic mammography was performed with CAD. The current study was also evaluated with a Computer Aided Detection (CAD) system. FINDINGS: Both breasts show marked parenchymal heterogeneity and increased density, limiting the sensitivity of mammography. A BB marker was placed at the area of palpable abnormality in the upper slightly outer right breast anterior depth. No underlying abnormality is seen. No suspicious calcifications are identified. The axillae are unremarkable. IMPRESSION: No mammographic features suspicious for malignancy are identified. Even so, directed sonographic interrogation of the area of palpable abnormality in the right breast is recommended and will be performed today. ACR BI-RADS Category 0: Incomplete. (Needs additional imaging evaluation). Result letter will be mailed to the patient. Note: At least 10% of breast cancer is not imaged by mammography. Dictated by: Dictated on workstation # [id number]
== END ==
LOC: RAD 12:53
PROVIDERS: ATTEND Family Medicine
DX: N63.10 Unspecified lump in the right breast, unspecified quadrant (principal)
CPT/HCPCS: 77066

== ENCOUNTER → 2018-11-01 | Outpatient (CLI) | payer MEDICAID ==
--- NOTE | 2018-11-01 16:44 | Diagnostic Imaging Report ---
PROCEDURE: CT head without contrast. TECHNIQUE: Multiple contiguous axial images were obtained through the brain without the use of intravenous contrast. INDICATION: Nausea, vomiting, dizziness, left arm weakness with slurred speech. There is no intracranial hemorrhage. No sulcal effacement. No findings of focal or generalized cerebral edema. The basilar cisterns are patent. There is no sulcal effacement. The ventricular system nondilated and nondisplaced. Orbits, sinuses and calvarium within normal limits. IMPRESSION: No hemorrhage, edema or acute appearing abnormality. Dictated by: Dictated on workstation # [id number]
== END ==
LOC: RAD 15:53
PROVIDERS: ATTEND Physician Assistant
DX: R11.2 Nausea with vomiting, unspecified (principal); R29.898 Other symptoms and signs involving the musculoskeletal system; R47.81 Slurred speech
CPT/HCPCS: 70450

== ENCOUNTER → 2019-10-07 | Outpatient (CLI) | payer MEDICAID ==
--- NOTE | 2019-10-07 16:28 | Diagnostic Imaging Report ---
EXAMINATION: Right knee at 4:04 p.m. INDICATION: Knee pain. Three views were obtained. There are no prior studies available for comparison. FINDINGS: There is no fracture, dislocation, or acute bony abnormality evident. The knee joint seems well maintained. The soft tissues are unremarkable. There is no evidence for a joint effusion. IMPRESSION: 1. There is no evidence for an acute bony abnormality. 2. If clinical concern regarding a stress-type injury exists and further imaging is desired, then MRI would be recommended. Dictated by: Dictated on workstation # [id number]
== END ==
LOC: RAD 15:41
PROVIDERS: ATTEND Nurse Practitioner Family
DX: M25.561 Pain in right knee (principal)
CPT/HCPCS: 73562

== ENCOUNTER → 2019-10-17 | Outpatient (CLI) | payer MEDICAID ==
--- NOTE | 2019-10-17 10:04 | Diagnostic Imaging Report ---
EXAMINATION: Magnetic resonance imaging of the right knee without intravenous contrast DATE: October 17, 2019. COMPARISON: Right knee radiographs October 07, 2019. INDICATION: 29-year-old female, right knee pain after running marathon. TECHNIQUE: Multiplanar, multisequence non contrast enhanced MR imaging was accomplished. FINDINGS: MENISCI: The medial meniscus is intact. The lateral meniscus is intact. LIGAMENTS AND TENDONS: The anterior and posterior cruciate ligaments are intact. The medial collateral ligament is intact. The iliotibial band, mid third lateral capsular ligament, fibular collateral ligament, biceps femoris tendon and conjoined tendon are intact. The quadriceps tendon and patella ligament are intact. JOINT: The articular cartilage surfaces are intact. There is no knee joint effusion, prominent synovitis, or intra-articular body. BONE: There is unremarkable bone marrow signal. Specifically, negative for fracture, osteomyelitis, osteonecrosis, or marrow replacing process. BURSAE AND SOFT TISSUES: There is no Fowler's cyst. Additional soft tissue evaluation is unremarkable. IMPRESSION: 1. Unremarkable MRI of the right knee. Dictated by: Dictated on workstation # [id number]
== END ==
LOC: RAD 08:43
PROVIDERS: ATTEND Nurse Practitioner Family
DX: M25.561 Pain in right knee (principal)
CPT/HCPCS: 73721

== ENCOUNTER 2019-11-20 10:07 | Outpatient (RCR) | payer MEDICAID | END 2020-01-08 13:55 | disposition home or self-care (01) | PROVIDERS: ATTEND Nurse Practitioner Family | DX: M76.31 Iliotibial band syndrome, right leg (principal) ==

== ENCOUNTER → 2020-08-27 | Outpatient (CLI) | payer OTHER ==
[~2020-08-27] MED LIST changes: +GADOBUTROL 7.5 MMOL/7.5 ML (GADAVIST) VIAL IV ONE
--- NOTE | 2020-08-27 18:43 | Diagnostic Imaging Report ---
PROCEDURE: MR imaging of the brain with and without contrast. TECHNIQUE: Multiplanar, multisequence MR imaging of the brain was performed with and without contrast. INDICATION: Syncope, arm numbness. COMPARISON: CT head of 11/01/2018. FINDINGS: No restricted diffusion to indicate acute infarct. No gradient blooming hypointensity to indicate hemorrhage or vascular malformation. No extra-axial fluid collection or space-occupying mass. No hydrocephalus. No T2 FLAIR hyperintensities within the white matter that would suggest demyelinating disease. There is symmetric flair hyperintensities in the subcortical white matter at the bilateral occipital lobes near the posterior horns of lateral ventricle. No pathologic enhancement is seen. Major arterial flow voids are normal. Dural venous flow voids are also present. Mastoid air cells and paranasal sinuses are clear. Pituitary and pineal regions are unremarkable. No sagging of the brainstem. No cerebellar tonsillar herniation. IMPRESSION: 1. Symmetric and mild FLAIR hyperintensities in the subcortical white matter of the bilateral occipital lobes. These regions have no associated enhancement or mass effect. This can be seen in normal individuals with terminal zones of myelination. Alternatively, if patient has hypertension, a mild case of acute hypertensive encephalopathy (PRES) could give this appearance. 2. Otherwise, no abnormality is present. Dictated by: Dictated on workstation # [id number]
== END ==
LOC: RAD 15:56
PROVIDERS: ATTEND Family Medicine
DX: R51.9 Headache, unspecified (principal); R90.82 White matter disease, unspecified; R11.0 Nausea; R27.8 Other lack of coordination; R47.89 Other speech disturbances
CPT/HCPCS: 70553

== ENCOUNTER → 2020-10-11 | Outpatient (CLI) | payer OTHER ==
[~2020-10-11] MED LIST changes: -GADOBUTROL 7.5 MMOL/7.5 ML (GADAVIST) VIAL IV ONE
== END ==
LOC: CARD 14:52
PROVIDERS: ATTEND Internal Medicine Cardiovascular Disease
DX: R55 Syncope and collapse (principal)

== ENCOUNTER 2020-10-12 09:00 | Day surgery (SDC) | payer OTHER ==
[~2020-10-12] VITALS: Ht 157 cm; Wt 61.0 kg
[2020-10-12 08:09] VITALS: BP 115/41
--- NOTE | 2020-10-12 08:50 | NUR ---
SHORTLY AFTER LOOP IMPLANTATION AND DURING APPLYING DRESSING PT BECAME DIAPHORETIC, NAUSEATED, STATES SHE IS GOING TO PASS OUT. PT DID GO IN AND OUT OF CONSCIOUSNESS SEVERAL TIMES. PLACED ON MONITOR. SB 40-50'S NO ECTOPY NOTED. NIBP EVERY 15 106/58 94/56 84/51 102/63
[~2020-10-12 09:00] MED LIST changes: +LIDOCAINE 1% INJ 20 ML 20 ML VIAL INJ ONE; +LIDOCAINE 1% INJ 20 ML 20 ML VIAL ONE
--- NOTE | 2020-10-12 09:22 | NUR ---
PT REMAINS AWAKE AND ALERT. FAMILY AT BEDSIDE. REMAINS SB IN THE 50'S. DR GAUTHIER TO SEE PT AND WOULD LIKE TO KEEP HER OVERNIGHT. PT AGREED. ALL TEACHING REGARDING LOOP RECORDER GIVEN TO PT AND FAMILY, VERBALIZED UNDERSTANDING.
--- NOTE | 2020-10-12 09:43 | NUR ---
PT TRANSFERRED VIA W/C TO ROOM 507 AND REPORT GIVEN TO ACOSTA LIMA
[2020-10-12] MEDS ORDERED: ACETAMINOPHEN 325 MG TABLET PO PRN (10:15)
--- NOTE | 2020-10-12 11:42 | OPERATIVE REPORT ---
DATE OF SERVICE: 10/12/2020 PREOPERATIVE DIAGNOSIS: Syncope. POSTOPERATIVE DIAGNOSIS: Syncope. PROCEDURE: Implantable loop recorder implantation. INDICATIONS: The patient is a 30-year-old lady, who has been experiencing syncope. Implantable loop recorder implantation was carried out after having obtained informed consent. DESCRIPTION OF PROCEDURE: [facility] The left prepectoral area was prepared and draped in the usual sterile fashion. Lidocaine 1% was used for local anesthesia. The tools provided with the [employer] Reveal LINQ device were used to make a pocket anterior to the fourth intercostal space on the left side just to the left of the sternum. The device was placed in the pocket and the wound edges were closed using Dermabond and Steri-Strips. She tolerated the procedure well. The device is [employer] Reveal LINQ with serial# [id number]. Job ID: [id number] DocumentID: [id number] Dictated Date: 10/12/2020 08:40:26 Architect Internship Date: 10/12/2020 11:41:14 Dictated By: ALIYA GAUTHIER MD, MA, FACP, FACC,
[2020-10-12 12:06] VITALS: BP 91/51
[2020-10-12 15:15] VITALS: BP 91/51
[2020-10-12 15:50] VITALS: BP 119/75
--- NOTE | 2020-10-12 16:25 | NUR ---
patient arrived via ambulatory with staff to room 418 with no complaints. vss, will continue to monitor patient
[2020-10-12 16:33] VITALS: BP 139/61
--- NOTE | 2020-10-12 17:30 | Cardiology History & Physical ---
HPI-Cardiology Cardiology H&P Date of Admission 10/12/20 Primary Care Physician Elisabeth Cadena MD Attending Physician Kendra Gomes MD, MA FACP [facility] Consulting Physician BELKIS CC: Syncope HPI: 30 yo woman recently referred to us from Dr Cadena's for eval of syncope. Episodes statred several yers gerda Has had more episodes lately. May occur while sitting of when up on her feet. Gets foggy in her head, has blurry vison, then loses consciousness that lasts a minute or two. Generally is able to brace herself before this happens. Has not had any serious injury form it. This happens once or twice month. Denies cp or shortness of breath. Has feeling of heart racing before syncope. No leg swelling Today, [facility], but shortly following implant was having episode of syncope lasting a few seconds. Was not on tele at that time and ILR had not been activated yet. Reported no other symptoms. Nurse noted the pulse to be in forties. Episodes occurred when pressure was being held over the site immediately after implant Review of Systems-Cardiology Review of Systems Constitutional: No weight loss Eyes: No vision change Ears/Nose/Throat: No ear discharge, No nasal drainage, No recent hearing loss Respiratory: As described under HPI Cardiovascular: As described under HPI Gastrointestinal: No diarrhea, No nausea, No vomiting Genitourinary: No dysuria, No hematuria, No urine coloration changes Musculoskeletal: No joint pain, No muscle pain Skin: No rash Psychiatric/Neurological: No focal weakness Hematologic: No bleeding abnormalities [id number] Hx Patient Social History Alcohol Use: Denies Use Recreational Drug Use: No Smoking Status: Never a Smoker Recent Foreign Travel: No Recent Infectious Disease Expo: No Physical Abuse Screen: No Sexual Abuse: No Immunizations Up To Date Tetanus Booster (TDap): More than 5yrs Date of Influenza Vaccine: Aug 05, 2020 Past Medical History PMH As described under Assessment. Family Medical History Family History: Asthma 19 FATHER G8 BROTHER Severe allergy 19 FATHER G8 BROTHER Thyroid disease 19 MOTHER No Family History of: AIDS Abdominal aortic aneurysm Devyn's disease Alcoholism Alzheimer's disease Aphasia Arthritis Cancer of mouth Cardiovascular disease Cataracts Colon cancer Completed stroke Congenital disease Congenital heart disease Coronary thrombosis Cystic fibrosis Deafness or hearing loss Dementia Diabetes mellitus Drug abuse Dysphasia Fibrocystic disease of breast Gastroenteritis Glaucoma Headache disorder Hypercholesterolemia Hypertension Infertility Kidney disease Myocardial infarction Neoplasm Not obtainable due to adoption Osteoporosis Parkinson's disease Prostate cancer Psychosocial problem Respiratory disorder Seizure disorder Tuberculosis Visual disorder Allergies and Home Medications Allergies Coded Allergies: No Known Drug Allergies (Unverified , 05/29/12) Home Medications Ferrous Sulfate 325 Mg Capsule.er, 325 MG PO DAILY, (Reported) Ibuprofen 600 Mg Tablet, 600 MG PO Q6H Prescribed by: BIRD ALANIS on 06/27/17 1331 Patient Home Medication List Home Medication List Reviewed: Yes Physical Exam-Cardiology Physical Exam Vital Signs/I&O 10/12/20 10/12/20 10/12/20 10/12/20 08:09 10:44 12:06 15:15 Temp 36.7 36.8 36.8 Pulse 63 64 65 65 Resp 16 16 16 B/P (MAP) 115/41 (65) 91/51 (64) 91/51 Pulse Ox 100 96 96 O2 Delivery Room Air Room Air Room Air 10/12/20 10/12/20 10/12/20 15:50 16:33 16:50 Temp 36.8 37.0 Pulse 78 76 Resp 18 16 B/P (MAP) 119/75 (90) 139/61 (87) Pulse Ox 99 97 97 O2 Delivery Room Air Room Air Room Air Capillary Refill : Constitutional: AAO x 3, well-developed, well-nourished HEENT: EOMI, hearing is well preserved; No xanthelasmas are seen Neck: carotid pulses are 2 + bilaterally, with good upstrokes Cardiovascular: regular rate-rhythm, S1 and S2 Gastrointestinal: No tender, No guarding, No rebound; audible bowel sounds Extremities: No clubbing, No ecchymosis, No significant edema Neurologic/Psychiatric: oriented x 3, other (moves all limbs equally) Skin: No rash, No ulcerations A/P-Cardiology Assessment/Admission Diagnosis Syncope of undetermined etiology, suspect vasovagal episodes on 10/12/20 S/p ILR on 10/12/20 Echo on 10/11/20: LVEF 60-65%, RVSP 35-40 mmHg Admission Status: Observation Discussion and Recomendations * Tele * ILR had not been activated at time of syncope. It has since been activated * Advised increased oral intake * iv fluids overnight Clinical Quality Measures DVT/VTE Risk/Contraindication: RFS Level Per Nursing on Admit: 0=No Risk/No VTE PPX KENDRA GOMES MD FACP FAC CCDS Oct 12, 2020 17:30
[2020-10-12 19:59] VITALS: BP 117/56
[2020-10-13] VITALS: BP 113/53
[2020-10-13 03:56] VITALS: BP 109/54
[2020-10-13 08:00] VITALS: BP 118/72
--- NOTE | 2020-10-13 08:02 | Progress Note - Cardiology ---
Cardiology SOAP Progress Note Subjective: Sitting up in bed No further syncope or near syncopal episodes Wants to go home Objective: I&O/Vital Signs 10/13/20 10/13/20 10/13/20 10/13/20 00:00 01:00 03:56 07:00 Temp 36.6 36.8 Pulse 64 53 60 64 Resp 16 15 B/P (MAP) 113/53 (73) 109/54 (72) Pulse Ox 97 97 O2 Delivery Room Air Room Air 10/13/20 08:00 Temp 36.5 Pulse 70 Resp 18 B/P (MAP) 118/72 (87) Pulse Ox 100 O2 Delivery Room Air 10/13/20 00:00 Intake Total 1200 ml Balance 1200 ml Weight (Pounds): 164 Weight (Ounces): 3.2 Weight (Calculated Kilograms): 74.959617 Device Insertion Site: without hematoma, no signs of inflammation, other (post ILR implant, drsg D&I) Constitutional: AAO x 3, well-developed, well-nourished Cardiovascular: regular rate-rhythm, S1 and S2 Gastrointestional: audible bowel sounds Extremities: No clubbing, No ecchymosis, No significant edema Neurologic/Psychiatric: oriented x 3, other Skin: No rash, No ulcerations A/P: Assessment: Syncope of undetermined etiology, suspect vasovagal episodes on 10/12/20 S/p ILR on 10/12/20 Echo on 10/11/20: LVEF 60-65%, RVSP 35-40 mmHg Plan: * Tele - no documentation of arrhythmia or bradycardia * ILR had not been activated at time of syncope. It has since been activated * Advised increased oral intake * No further episodes * OK to discharge home today * Continue home medications * F/U on Sunday for dressing changed * F/U appt in 3 weeks [place] Oct 13, 2020 08:02
--- NOTE | 2020-10-13 08:04 | Discharge Inst-Cardiology ---
Discharge Inst-Cardiac Discharge Medications Continued Medications: Ferrous Sulfate (Iron) 325 Mg Capsule.er 325 MG PO DAILY, CAP Ibuprofen (Ibuprofen) 600 Mg Tablet 600 MG PO Q6H, #60 TAB Vits W-Ca,Fe,Fa(<1MG) () 1 Each Tablet 1 EACH PO Patient Instructions Patient Instructions: Follow up on October 18 for a dressing change Please schedule follow up appointment to see Dr. Gomes in 3 weeks [place] Oct 13, 2020 08:04
--- NOTE | 2020-10-13 11:40 | Progress Note - Cardiology ---
Cardiology SOAP Progress Note Subjective: No cp or palp No recurrence of syncope No focal weakness Mild discomfort at site of ILR implant Objective: I&O/Vital Signs 10/13/20 10/13/20 10/13/20 10/13/20 00:00 01:00 03:56 07:00 Temp 36.6 36.8 Pulse 64 53 60 64 Resp 16 15 B/P (MAP) 113/53 (73) 109/54 (72) Pulse Ox 97 97 O2 Delivery Room Air Room Air 10/13/20 10/13/20 08:00 08:00 Temp 36.5 Pulse 70 Resp 18 B/P (MAP) 118/72 (87) Pulse Ox 100 O2 Delivery Room Air Room Air 10/13/20 00:00 Intake Total 1200 ml Balance 1200 ml Weight (Pounds): 164 Weight (Ounces): 3.2 Weight (Calculated Kilograms): 74.715791 Device Insertion Site: without hematoma, no signs of inflammation, other (post ILR implant) Constitutional: AAO x 3, well-developed, well-nourished Cardiovascular: regular rate-rhythm, S1 and S2 Gastrointestional: audible bowel sounds Extremities: No clubbing, No ecchymosis, No significant edema Neurologic/Psychiatric: oriented x 3, other Skin: No rash, No ulcerations A/P: Assessment: Syncope of undetermined etiology, suspect vasovagal episodes on 10/12/20 S/p ILR on 10/12/20 Echo on 10/11/20: LVEF 60-65%, RVSP 35-40 mmHg Plan: * Tele - no documentation of arrhythmia or bradycardia * ILR had not been activated at time of syncope. It has since been activated * Advised increased oral intake * No further episodes * OK to discharge home today * Continue home medications * F/U on Sunday for repeat ILR site eval * F/U appt in 3 weeks ALIYA GAUTHIER MD FACP [facility] Oct 13, 2020 11:40
[2020-10-13 12:00] VITALS: BP 117/65
[2020-10-13 12:08] VITALS: BP 117/65
== END 2020-10-13 12:08 | disposition home or self-care (01) ==
LOC: CATH 09:00 → CSD 09:44 → 4TH 16:25 → CATH 10-13 12:08
PROVIDERS: ATTEND Internal Medicine Cardiovascular Disease
DX: R55 Syncope and collapse (principal)
CPT/HCPCS: 33285; 93005; C1764; 99211; G0378